=== PATIENT | female | born 1975 | race African-American/Black ===

== ENCOUNTER 2016-07-19 08:35 | Emergency (ER) | payer MEDICARE, MEDICAID ==
[~2016-07-19] VITALS: Ht 167.6 cm; Wt 103.4 kg
[~2016-07-19 08:35] MED LIST: CILOXAN 0.3% O1 DROP LEFT EYE; GENTAMICIN SUL3.5 GM OP; NAPROXEN500 M2 ORAL; NORCO 5-325 TA1 EACH ORAL; PLAQUENIL200 MG PO; ZYMAXID2.5 ML LEFT EYE
[2016-07-19] MEDS ORDERED: PREDNISONE20 MG ORAL (09:11)
[2016-07-19] MEDS ORDERED: NORCO 5-325 TA1 EACH ORAL (09:11)
[2016-07-19] MEDS ORDERED: PredniSONE 20mg tab ORAL ONE (09:15)
[2016-07-19] MEDS ORDERED: Ketorolac 60mg Inj IM ONE (09:15)
[2016-07-19 09:42] VITALS: BP 121/88
--- NOTE | 2016-07-19 10:20 | Emergency Room Report ---
History of Present Illness General Chief Complaint: Upper Extremity Injury Source: Patient Present Illness HPI Patient presented for right shoulder pain. The patient had prior history of lupus. Patient any fever. She denied recent trauma. Pain had gradual onset over the past 3 days. Patient was having increased pain with anterior movement. She reports having prior history of multiple joint pains. She's not currently taking any medications. She denies recent illness. She denies .She denied any sore throat or other complaints. Allergies: Coded Allergies: No Known Allergies (Unverified , 07/04/12) Patient History Last Menstrual Period: 3-3 Now: No Reviewed Nursing Documentation: PMH: Agreed, PSxH: Agreed Nursing Documentation-PMH Past Medical History: No History, Except For Hx Cardiac Problems: No Hx Hypertension: No Hx Pacemaker: No Hx Asthma: No Hx COPD: No Hx Diabetes: No Hx Cancer: No Hx Gastrointestinal Problems: No Hx Dialysis: No Hx Neurological Problems: Yes - LUPUS Hx Cerebrovascular Accident: No Hx Seizures: No Review of Systems All Other Systems: negative except mentioned in HPI Physical Exam Vital Signs Date Time Temp Pulse Resp B/P Pulse Ox O2 Delivery O2 Flow Rate FiO2 07/19/16 08:48 98.1 93 18 126/84 100 Room Air General Appearance: well appearing, no apparent distress, alert, GCS 15 Head: normocephalic, atraumatic ENT: hearing grossly normal, normal voice Neck: full range of motion, supple Respiratory: no respiratory distress, speaking full sentences Gastrointestinal: normal inspection, non tender, soft Musculoskeletal: normal inspection, back normal, no calf tenderness Neurologic: normal inspection, alert, oriented x3, responsive, normal gait Psychiatric: normal inspection, mood/affect normal Skin: no rash Medical Decision Making Diagnostic Impression: Primary Impression: Arthritis ER Course Patient presented for shoulder pain. Differential diagnoses included was not limited to fracture, dislocation, a.c. separation, arthritis, septic joint. Patient's benign exam and does not appear to require any further imaging or laboratory testing at this time The patient was given IM pain medications as well as prednisone. The patient does not appear to have a septic joint. The patient has some tenderness in the anterior deltoid muscle. There is no bicipital tenderness. The joint appears normal without inflammation or erythema. The patient is advised followup with her primary care physician for further evaluation and treatment. She is given prescription for [place]. Last Vital Signs Date Time Temp Pulse Resp B/P Pulse Ox O2 Delivery O2 Flow Rate FiO2 07/19/16 08:48 98.1 93 18 126/84 100 Room Air Status: improved Disposition: HOME, SELF-CARE Condition: Stable Scripts Hydrocodone Bit/Acetaminophen 5-325* (NORCO 5-325*) 1 Each Tablet 1 TAB ORAL Q6H Y for For Pain, #10 TAB 0 Refills Prov: Alejandro Nicholson 07/19/16 Prednisone* (PREDNISONE*) 20 Mg Tablet 40 MG ORAL DAILY, #10 TAB Prov: Alejandro Nicholson 07/19/16 Referrals: NON PHYSICIAN (PCP) Patient Instructions: Arthritis, [id number] Alejandro Nicholson Jul 19, 2016 10:20
== END 2016-07-19 09:42 | disposition home or self-care (01) ==
LOC: EMR 09:20
DX: M19.90 Unspecified osteoarthritis, unspecified site (principal); M32.9 Systemic lupus erythematosus, unspecified
CPT/HCPCS: 96372; 99284

== ENCOUNTER 2016-09-22 09:44 | Emergency (ER) | payer MEDICARE, MEDICAID ==
[~2016-09-22] VITALS: Ht 165.1 cm; Wt 92.5 kg
[~2016-09-22 09:44] MED LIST changes: +PREDNISONE20 MG ORAL
[2016-09-22 10:00] VITALS: BP 121/83
[2016-09-22] MEDS ORDERED: Famotidine 20 MG/ 2ML VIAL IVP ONE (10:15)
[2016-09-22 10:31] LABS: BASOPHILS % (AUTO) 1.1 % (0.0-2.0); EOSINOPHILS % (AUTO) 3.4 % (0.0-3.0); LYMPHOCYTES % (AUTO) 24.6 % (20.0-45.0); MEAN CORPUSCULAR HEMOGLOBIN 27.8 PG (27.0-31.0); MEAN CORPUSCULAR HGB CONC 31.9 G/DL (32.0-36.0); MEAN CORPUSCULAR VOLUME 87 FL (80-99); MEAN PLATELET VOLUME 8.6 FL (6.5-10.1); MONOCYTES % (AUTO) 11.2 % (1.0-10.0); NEUTROPHILS % (AUTO) 59.7 % (45.0-75.0); PLATELET COUNT 502 K/UL (150-450); RED BLOOD COUNT 5.74 M/UL (4.20-5.40); RED CELL DISTRIBUTION WIDTH 12.3 % (11.6-14.8); WHITE BLOOD COUNT 7.7 K/UL (4.8-10.8)
[2016-09-22 10:33] LABS: APPEARANCE,URINE SLIGHTLY CLOUDY; KETONES,URINE 4+ (NEGATIVE); LEUKOCYTE ESTERASE ,URINE 1+ (NEGATIVE); NITRITE,URINE NEGATIVE (NEGATIVE); PH,URINE 6 (4.5-8.0); PROTEIN,URINE 3+ (NEGATIVE); UROBILINOGEN,URINE 1 MG/DL (0.0-1.0)
[2016-09-22 10:42] LABS: BACTERIA,URINE MODERATE /HPF; SQUAMOUS EPITHELIAL CELL,UR MODERATE /LPF (NONE/OCC)
[2016-09-22 10:44] LABS: ICTOTEST NEGATIVE
[2016-09-22 10:55] LABS: ALANINE AMINOTRANSFERASE 9 U/L (3-33); ALBUMIN/GLOBULIN RATIO 0.8 (1.0-2.7); ANION GAP 17 (5-15); ASPARTATE AMINO TRANSFERASE 16 U/L (5-40); CALCIUM 10.2 mg/dL (8.6-10.2); CARBON DIOXIDE 27 mEQ/L (20-30); CHLORIDE 92 mEQ/L (98-107); CREATININE 1.1 mg/dL (0.5-0.9); GLOMERULAR FILTRATION RATE > 60 mL/min (>60); HEMOLYSIS 2; LIPASE 40 U/L (< 60); POTASSIUM 3.4 mEQ/L (3.4-4.9); SODIUM 136 mEQ/L (135-145); TOTAL PROTEIN 9.3 g/dL (6.6-8.7)
[2016-09-22] MEDS ORDERED: cefTRIAXone 1 GM in NS 55 ML IVPB ONE (11:15)
[2016-09-22] MEDS ORDERED: PROTONIX40 MG ORAL (12:13)
[2016-09-22] MEDS ORDERED: ZOFRAN ODT4 MG ORAL (12:13)
[2016-09-22] MEDS ORDERED: KEFLEX500 MG ORAL (12:13)
[2016-09-22 12:25] VITALS: BP 131/90
--- NOTE | 2016-09-23 07:04 | Emergency Room Report ---
History of Present Illness General Chief Complaint: Generalized Weakness Source: Patient Present Illness HPI 41-year-old female presents to ED c/o vomiting and dizziness x 1 week. patient states she had gastric balloon surgery on 08/27 in [place]. Patient states she initially started on a clear liquid diet and slowly advance to pured foods. States that this week she was supposed to start on solid foods but states she's been unable to tolerate. Patient states she's been vomiting and also having diarrhea. Feels very weak and dizzy. Denies any abdominal pain. Denies any fevers or chills. Denies sick contacts or recent travel. No other aggravating relieving factors. Denies any other associated symptom Allergies: Coded Allergies: No Known Allergies (Unverified , 07/04/12) Patient History Past Medical History: other - lupus Past Surgical History: other - gastric balloon Pertinent Family History: none Social History: Denies: alcohol use, drug use, smoking Last Menstrual Period: 08/14/16 Now: No Immunizations: UTD Reviewed Nursing Documentation: PMH: Agreed, PSxH: Agreed Nursing Documentation-PMH Past Medical History: No History, Except For Hx Hypertension: No Hx Pacemaker: No Hx Asthma: No Hx COPD: No Hx Diabetes: No Hx Cancer: No Hx Gastrointestinal Problems: No Hx Dialysis: No Hx Neurological Problems: Yes - LUPUS Hx Cerebrovascular Accident: No Hx Seizures: No Review of Systems All Other Systems: negative except mentioned in HPI Physical Exam Vital Signs Date Time Temp Pulse Resp B/P Pulse Ox O2 Delivery O2 Flow Rate FiO2 09/22/16 09:52 97.3 121 16 112/88 98 Room Air Sp02 EP Interpretation: reviewed, normal General Appearance: no apparent distress, alert, GCS 15, non-toxic Head: normocephalic, atraumatic Eyes: bilateral eye PERRL, bilateral eye normal inspection ENT: hearing grossly normal, normal pharynx, no angioedema, normal voice Neck: full range of motion, supple/symm/no masses Respiratory: chest non-tender, lungs clear, normal breath sounds, speaking full sentences Cardiovascular #1: no edema, tachycardia Cardiovascular #2: 2+ carotid (R), 2+ carotid (L), 2+ radial (R), 2+ radial (L) , 2+ dorsalis pedis (R), 2+ dorsalis pedis (L) Gastrointestinal: normal bowel sounds, non tender, soft, non-distended, no guarding, no rebound Rectal: deferred Genitourinary: normal inspection, no CVA tenderness Musculoskeletal: back normal, gait/station normal, normal range of motion, non- tender Neurologic: alert, oriented x3, responsive, motor strength/tone normal, sensory intact, speech normal Psychiatric: judgement/insight normal, memory normal, mood/affect normal, no suicidal/homicidal ideation Reflexes: 3+ bicep (R), 3+ bicep (L), 3+ tricep (R), 3+ tricep (L), 3+ knee (R) , 3+ knee (L) Skin: normal color, no rash, warm/dry, well hydrated Lymphatic: no adenopathy Medical Decision Making Diagnostic Impression: Primary Impression: UTI (urinary tract infection) Qualified Codes: N39.0 - Urinary tract infection, site not specified Additional Impression: Gastroenteritis ER Course Hospital Course 41-year-old F presents to ED with vomiting, diarrhea. h/o gastric balloon placement on 08/27 differential diagnosis: gastritis, SBO, cholecystits, gastroenteritis Clinical course Patient placed on stretcher. On diagnostic cardiac sonographer. After initial history and physical I ordered labs, IV fluids, Zofran and protonix Labs - no leukocytosis, electrolytes ok, LFTs normal, UA + bacteria Upon reassessment, patient states she feels better. No longer tachycardic. Given that abdomen is soft and patient denies pain and do not believe imaging is required at this time to evaluate for the balloon Attempted to contact the surgeon but was unsuccessful. Patient states she has followup appointment in her office tomorrow Given Rocephin in ED I feel this is a highly complex case requiring extensive working including EKG/ Rhythm strip, Xray/CT/US, Blood/urine lab work, repeat exams while in ED, and administration of strong opiates/narcotics for pain control, admission to hospital or close patient follow up. Diagnosis - gastroenteritis, UTI Stable and discharged to home with prescriptions for zofran, protonix, keflex. Followup with PMD. Return to ED if symptoms recur or worsen Labs Test 09/22/16 10:10 09/22/16 10:15 Urine Color Yellow Urine Appearance Slightly cloudy Urine pH 6 (4.5-8.0) Urine Specific [place] 1.020 (1.005-1.035) Urine Protein 3+ (NEGATIVE) Urine Glucose (UA) Negative (NEGATIVE) Urine Ketones 4+ (NEGATIVE) Urine Occult Blood 1+ (NEGATIVE) Urine Nitrite Negative (NEGATIVE) Urine Bilirubin 2+ (NEGATIVE) Urine Ictotest Negative Urine Urobilinogen 1 MG/DL (0.0-1.0) Urine Leukocyte Esterase 1+ (NEGATIVE) Urine RBC 2-4 /HPF (0 - 2) Urine WBC 2-4 /HPF (0 - 2) Urine Squamous Epithelial Cells Moderate /LPF (NONE/OCC) Urine Bacteria Moderate /HPF (NONE) Urine HCG, Qualitative Negative White Blood Count 7.7 K/UL (4.8-10.8) Red Blood Count 5.74 M/UL (4.20-5.40) Hemoglobin 15.9 G/DL (12.0-16.0) Hematocrit 50.0 % (37.0-47.0) Mean Corpuscular Volume 87 FL (80-99) Mean Corpuscular Hemoglobin 27.8 PG (27.0-31.0) Mean Corpuscular Hemoglobin Concent 31.9 G/DL (32.0-36.0) Red Cell Distribution Width 12.3 % (11.6-14.8) Platelet Count 502 K/UL (150-450) Mean Platelet Volume 8.6 FL (6.5-10.1) Neutrophils (%) (Auto) 59.7 % (45.0-75.0) Lymphocytes (%) (Auto) 24.6 % (20.0-45.0) Monocytes (%) (Auto) 11.2 % (1.0-10.0) Eosinophils (%) (Auto) 3.4 % (0.0-3.0) Basophils (%) (Auto) 1.1 % (0.0-2.0) Sodium Level 136 mEQ/L (135-145) Potassium Level 3.4 mEQ/L (3.4-4.9) Chloride Level 92 mEQ/L (98-107) Carbon Dioxide Level 27 mEQ/L (20-30) Anion Gap 17 (5-15) Blood Urea Nitrogen 8 mg/dL (7-23) Creatinine 1.1 mg/dL (0.5-0.9) Estimat Glomerular Filtration Rate > 60 mL/min (>60) Glucose Level 105 mg/dL (74-106) Calcium Level 10.2 mg/dL (8.6-10.2) Total Bilirubin 0.4 mg/dL (0.0-1.2) Aspartate Amino Transf (AST/SGOT) 16 U/L (5-40) Alanine Aminotransferase (ALT/SGPT) 9 U/L (3-33) Alkaline Phosphatase 55 U/L (35-104) Total Protein 9.3 g/dL (6.6-8.7) Albumin 4.4 g/dL (3.5-5.2) Globulin 4.9 g/dL Albumin/Globulin Ratio 0.8 (1.0-2.7) Lipase 40 U/L (< 60) Last Vital Signs Date Time Temp Pulse Resp B/P Pulse Ox O2 Delivery O2 Flow Rate FiO2 09/22/16 12:25 98.0 98 16 131/90 100 Room Air Status: improved Disposition: HOME, SELF-CARE Condition: Stable Scripts Ondansetron Odt* (ZOFRAN ODT*) 4 Mg Tab.rapdis 4 MG ORAL Q6H Y for Nausea & Vomiting, #30 TAB 0 Refills Prov: DELORES HODGE M.D. 09/22/16 Cephalexin* (KEFLEX*) 500 Mg Capsule 500 MG ORAL Q6H, #28 CAP 0 Refills Prov: DELORES HODGE M.D. 09/22/16 Pantoprazole* (PROTONIX*) 40 Mg Tablet. 40 MG ORAL DAILY, #30 TAB Prov: DELORES HODGE M.D. 09/22/16 Patient Instructions: Viral Gastroenteritis, Adult, [id number] DELORES HODGE M.D. September 23, 2016 07:04
== END 2016-09-22 12:27 | disposition home or self-care (01) ==
LOC: EMR 09:58
DX: N39.0 Urinary tract infection, site not specified (principal); K52.9 Noninfective gastroenteritis and colitis, unspecified; M32.9 Systemic lupus erythematosus, unspecified; Z98.890 Other specified postprocedural states
CPT/HCPCS: 36415; 80053; 81003; 81025; 83690; 85025; 87086; 96360; 96361; 96374; 96375; 99284; J0696; J2405; S0028

== ENCOUNTER → 2017-04-13 | Emergency (ER) | payer MEDICARE, MEDICAID ==
[~2017-04-13] VITALS: Ht 165.1 cm; Wt 92.5 kg
[~2017-04-13] MED LIST changes: +ERYTHROMYCIN1 G1 OP; +KEFLEX500 MG ORAL; +PROTONIX40 MG ORAL; +ZOFRAN ODT4 MG ORAL
[2017-04-13 10:39] VITALS: BP 136/91
--- NOTE | 2017-04-13 10:46 | Emergency Room Report ---
History of Present Illness General Chief Complaint: Eye Problems Source: Patient Present Illness HPI 41-year-old female walks in with to 3 days of right eye redness, "film" discharge, "grittiness" feeling to right eye and itch. Now spreading to left eye. Does not wear contacts. Denies pain with extraocular movements, headache , fever chills, sick contacts. Allergies: Coded Allergies: No Known Allergies (Unverified , 07/04/12) Patient History Past Medical History: none Past Surgical History: none Pertinent Family History: none Last Menstrual Period: 04/06/17 Now: No Immunizations: UTD Reviewed Nursing Documentation: PMH: Agreed, PSxH: Agreed Nursing Documentation-PMH Hx Hypertension: No Hx Pacemaker: No Hx Asthma: No Hx COPD: No Hx Diabetes: No Hx Cancer: No Hx Gastrointestinal Problems: No Hx Dialysis: No Hx Neurological Problems: Yes - LUPUS Hx Cerebrovascular Accident: No Hx Seizures: No Review of Systems All Other Systems: negative except mentioned in HPI Physical Exam Vital Signs Date Time Temp Pulse Resp B/P (MAP) Pulse Ox O2 Delivery O2 Flow Rate FiO2 04/13/17 10:26 98.1 82 16 136/91 97 Room Air Sp02 EP Interpretation: reviewed, normal General Appearance: normal inspection, well appearing, no apparent distress, alert, GCS 15, non-toxic Head: atraumatic Eyes: bilateral eye PERRL, bilateral eye EOMI, bilateral eye other - Right eye : Injected conjunctiva, mild thick discharge. left eye: very scant injected conjunctiva. No FB on lid eversion. Mild right lower eyelid swelling. ENT: normal ENT inspection, hearing grossly normal, normal voice Neck: normal inspection, full range of motion, supple, no bony tend Respiratory: normal inspection, lungs clear, normal breath sounds, no respiratory distress, no retraction, no wheezing Cardiovascular #1: regular rate, rhythm, no edema Gastrointestinal: normal inspection, normal bowel sounds, non tender, soft, no guarding, no hernia Genitourinary: no CVA tenderness Musculoskeletal: normal inspection, back normal, normal range of motion, Mary' s Sign negative Neurologic: normal inspection, alert, oriented x3, responsive, grease renderer III-XII nml as tested, speech normal Psychiatric: normal inspection, judgement/insight normal, mood/affect normal Skin: normal inspection, normal color, no rash Medical Decision Making Diagnostic Impression: Primary Impression: Bacterial conjunctivitis of both eyes ER Course 41-year-old female with likely bacterial conjunctivitis of right eye, now also left eye Mild swelling of the right lower eyelid, no stye or hordoleum No pain with extraocular movement, unlikely orbital cellulitis No preorbital cellulitis on exam Vital signs stable, well-appearing, afebrile Does not wear contacts Erythromycin eye ointment prescribed understands to return for worsening swelling of eyes pain with extraocular movement ER course: Patient has remained stable during ED stay. Patient is to be discharged to home. Prescriptions given are erythromycin optham Patient is instructed to follow up with their primary care doctor within 5 days. Strict return precautions discussed with patient such as fever, chills, worsening/severe pain, nausea, vomiting, which may indicate severe illness. Patient verbalizes understanding and agrees with plan. Please note that this Emergency Department Report was dictated using [employer]stewardess [employer] technology software, occasionally this can lead to erroneous entry secondary to interpretation by the dictation equipment Last Vital Signs Date Time Temp Pulse Resp B/P (MAP) Pulse Ox O2 Delivery O2 Flow Rate FiO2 04/13/17 10:26 98.1 82 16 136/91 97 Room Air Status: improved Disposition: HOME, SELF-CARE Condition: Improved Scripts Erythromycin Base (Erythromycin) 1 Gm Oint...g. 1 GM OP QID for 7 Days, #1 UNIT Prov: RHIANNON ELIZABETH M.D. 04/13/17 Patient Instructions: Bacterial Conjunctivitis Additional Instructions: - Apply 1/2-inch to both eyelids 4x a day for 7 days - Return to ER for worsening eyelid swelling, headache, or pain with eye movement RHIANNON ELIZABETH M.D. Apr 13, 2017 10:46
== END | disposition home or self-care (01) ==
LOC: EMR 10:35
DX: H10.9 Unspecified conjunctivitis (principal); B96.89 Other specified bacterial agents as the cause of diseases classified elsewhere; M32.9 Systemic lupus erythematosus, unspecified
CPT/HCPCS: 99283

== ENCOUNTER 2017-10-06 11:22 | Emergency (ER) | payer MEDICARE, MEDICAID ==
[~2017-10-06] VITALS: Ht 165.1 cm; Wt 89.4 kg
[2017-10-06 11:50] VITALS: BP 131/90
[2017-10-06 12:14] LABS: APPEARANCE,URINE CLEAR; BILIRUBIN, URINE NEGATIVE (NEGATIVE); COLOR,URINE PALE YELLOW; GLUCOSE, URINE (UA) NEGATIVE (NEGATIVE); KETONES,URINE NEGATIVE (NEGATIVE); LEUKOCYTE ESTERASE ,URINE 2+ (NEGATIVE); NITRITE,URINE NEGATIVE (NEGATIVE); PH,URINE 7 (4.5-8.0); PROTEIN,URINE NEGATIVE (NEGATIVE); UROBILINOGEN,URINE NORMAL MG/DL (0.0-1.0)
[2017-10-06 12:15] LABS: HEMATOCRIT 40.7 % (37.0-47.0); HEMOGLOBIN 13.3 G/DL (12.0-16.0); LYMPHOCYTES % (AUTO) 28.2 % (20.0-45.0); MEAN CORPUSCULAR VOLUME 88 FL (80-99); MONOCYTES % (AUTO) 10.6 % (1.0-10.0); NEUTROPHILS % (AUTO) 58.2 % (45.0-75.0); PLATELET COUNT 375 K/UL (150-450); RED BLOOD COUNT 4.64 M/UL (4.20-5.40); RED CELL DISTRIBUTION WIDTH 12.9 % (11.6-14.8); WHITE BLOOD COUNT 4.3 K/UL (4.8-10.8)
[2017-10-06 12:23] LABS: ANION GAP 8 mmol/L (5-15); BLOOD UREA NITROGEN 7 mg/dL (7-18); CALCIUM 8.9 MG/DL (8.5-10.1); CARBON DIOXIDE 26 MMOL/L (21-32); CHLORIDE 104 MMOL/L (98-107); CREATININE 0.9 MG/DL (0.55-1.30); POTASSIUM 3.2 MMOL/L (3.5-5.1); SODIUM 138 MMOL/L (136-145)
[2017-10-06 12:26] LABS: ALANINE AMINOTRANSFERASE 18 U/L (12-78); ALBUMIN 3.7 G/DL (3.4-5.0); ALBUMIN/GLOBULIN RATIO 0.8 (1.0-2.7); ALKALINE PHOSPHATASE 43 U/L (46-116); ASPARTATE AMINO TRANSFERASE 9 U/L (15-37); BILIRUBIN,TOTAL 0.4 MG/DL (0.2-1.0)
[2017-10-06] MEDS ORDERED: cefTRIAXone 1 GM in NS 55 ML IVPB ONE (13:00)
--- NOTE | 2017-10-06 13:06 | Emergency Room Report ---
History of Present Illness General Chief Complaint: Back Pain-No Injury Source: Patient Present Illness HPI This patient states that she had a urinary tract infection about 3 weeks ago. She states she finished a course of Keflex from her primary care physician about a week and a half ago. She states she feels like her urinary traction did not resolve completely. She states she still has dysuria and a foul odor to her urine. She states that she's also developed pain in her low back that is worse on the right side. She denies fever or chills. She denies vomiting. She has had some nausea. She denies chest pain or shortness of breath. She has no other complaints. Allergies: Coded Allergies: No Known Allergies (Unverified , 07/04/12) Patient History Past Medical History: see triage record, other - Lupus Social History: Denies: smoking, alcohol use, drug use Last Menstrual Period: 09/29/17 Now: No : 3 Para: 3 Reviewed Nursing Documentation: PMH: Agreed; PSxH: Agreed Nursing Documentation-PMH Hx Hypertension: No Hx Pacemaker: No Hx Asthma: No Hx COPD: No Hx Diabetes: No Hx Cancer: No Hx Gastrointestinal Problems: No Hx Dialysis: No Hx Neurological Problems: Yes - LUPUS Hx Cerebrovascular Accident: No Hx Seizures: No Review of Systems All Other Systems: negative except mentioned in HPI Physical Exam Vital Signs Date Time Temp Pulse Resp B/P (MAP) Pulse Ox O2 Delivery O2 Flow Rate FiO2 10/06/17 11:32 97.7 98 18 131/90 97 Room Air 97.7 Sp02 EP Interpretation: reviewed, normal General Appearance: no apparent distress, alert, GCS 15, non-toxic Head: normocephalic, atraumatic Eyes: bilateral eye normal inspection, bilateral eye PERRL ENT: hearing grossly normal, normal pharynx, no angioedema, normal voice Neck: full range of motion, supple/symm/no masses Respiratory: chest non-tender, lungs clear, normal breath sounds, no respiratory distress, no retraction, no accessory muscle use, speaking full sentences Cardiovascular #1: regular rate, rhythm, no edema Gastrointestinal: normal bowel sounds, non tender, soft, non-distended, no guarding, no rebound Rectal: deferred Genitourinary: CVA tenderness (R) Musculoskeletal: back normal, gait/station normal, normal range of motion Neurologic: alert, oriented x3, responsive, motor strength/tone normal, sensory intact, speech normal Psychiatric: judgement/insight normal, memory normal, mood/affect normal, no suicidal/homicidal ideation Skin: normal color, no rash, warm/dry, well hydrated Medical Decision Making Diagnostic Impression: Primary Impression: Back pain Additional Impression: UTI (urinary tract infection) ER Course Patient has a clinical presentation consistent with simple UTI. There are no systemic symptoms to include fever, chills, sweating, nausea or vomiting that would make me concerned for pyelonephritis. Overall this patient's evaluation is benign. Patient is stable for outpatient oral antibiotic therapy. The patient was given return precautions and followup instructions. Laboratory Tests Test 10/06/17 12:02 White Blood Count 4.3 K/UL (4.8-10.8) L Red Blood Count 4.64 M/UL (4.20-5.40) Hemoglobin 13.3 G/DL (12.0-16.0) Hematocrit 40.7 % (37.0-47.0) Mean Corpuscular Volume 88 FL (80-99) Mean Corpuscular Hemoglobin 28.7 PG (27.0-31.0) Mean Corpuscular Hemoglobin Concent 32.6 G/DL (32.0-36.0) Red Cell Distribution Width 12.9 % (11.6-14.8) Platelet Count 375 K/UL (150-450) Mean Platelet Volume 8.0 FL (6.5-10.1) Neutrophils (%) (Auto) 58.2 % (45.0-75.0) Lymphocytes (%) (Auto) 28.2 % (20.0-45.0) Monocytes (%) (Auto) 10.6 % (1.0-10.0) H Eosinophils (%) (Auto) 2.0 % (0.0-3.0) Basophils (%) (Auto) 1.0 % (0.0-2.0) Urine Color Pale yellow Urine Appearance Clear Urine pH 7 (4.5-8.0) Urine Specific [place] 1.005 (1.005-1.035) Urine Protein Negative (NEGATIVE) Urine Glucose (UA) Negative (NEGATIVE) Urine Ketones Negative (NEGATIVE) Urine Occult Blood Negative (NEGATIVE) Urine Nitrite Negative (NEGATIVE) Urine Bilirubin Negative (NEGATIVE) Urine Urobilinogen Normal MG/DL (0.0-1.0) Urine Leukocyte Esterase 2+ (NEGATIVE) H Urine RBC 0-2 /HPF (0 - 2) Urine WBC 10-15 /HPF (0 - 2) H Urine Squamous Epithelial Cells Few /LPF (NONE/OCC) Urine Bacteria Few /HPF (NONE) Urine HCG, Qualitative Negative (NEGATIVE) Sodium Level 138 MMOL/L (136-145) Potassium Level 3.2 MMOL/L (3.5-5.1) L Chloride Level 104 MMOL/L (98-107) Carbon Dioxide Level 26 MMOL/L (21-32) Anion Gap 8 mmol/L (5-15) Blood Urea Nitrogen 7 mg/dL (7-18) Creatinine 0.9 MG/DL (0.55-1.30) Estimate Glomerular Filtration Rate > 60 mL/min (>60) Glucose Level 103 MG/DL (74-106) Calcium Level 8.9 MG/DL (8.5-10.1) Total Bilirubin 0.4 MG/DL (0.2-1.0) Aspartate Amino Transferase (AST) 9 U/L (15-37) L Alanine Aminotransferase (ALT) 18 U/L (12-78) Alkaline Phosphatase 43 U/L (46-116) L Total Protein 8.2 G/DL (6.4-8.2) Albumin 3.7 G/DL (3.4-5.0) Globulin 4.5 g/dL Albumin/Globulin Ratio 0.8 (1.0-2.7) L Last Vital Signs Date Time Temp Pulse Resp B/P (MAP) Pulse Ox O2 Delivery O2 Flow Rate FiO2 10/06/17 11:50 97.7 72 18 131/90 97 Room Air 97.7 Status: improved Disposition: HOME, SELF-CARE Condition: Improved Referrals: NON PHYSICIAN (PCP) MARCO LAN D.O. Oct 06, 2017 13:06
[2017-10-06] MEDS ORDERED: NITROFURANTOIN100 M2 ORAL (13:08)
[2017-10-06 14:44] VITALS: BP 131/90
== END 2017-10-06 14:57 | disposition home or self-care (01) ==
LOC: EMR 11:47
DX: M54.5 Low back pain (principal); N39.0 Urinary tract infection, site not specified; M32.9 Systemic lupus erythematosus, unspecified
CPT/HCPCS: 36415; 80053; 81003; 81025; 85025; 87086; 87181; 96374; 96375; 99283; J0696

== ENCOUNTER 2018-01-20 09:51 | Emergency (ER) | payer MEDICARE, MEDICAID ==
[~2018-01-20] VITALS: Ht 165.1 cm; Wt 78.5 kg
[~2018-01-20 09:51] MED LIST changes: +NITROFURANTOIN100 M2 ORAL
[2018-01-20] MEDS ORDERED: Ketorolac 60mg Inj IM ONE (10:15)
--- NOTE | 2018-01-20 10:27 | Emergency Room Report ---
History of Present Illness General Chief Complaint: Lower Extremity Injury Source: Patient Present Illness HPI Patient presents with complaints of right knee pain Patient reports significant past medical history Previous surgery on the right knee Has had ligamental injury Up till 1-1/2 months ago patient was walking gingerly and carefully up and down stairs over the past one month she has been attempting to walk downstairs more regularly 2 weeks ago patient had same episode where she felt her right knee 'locking up' patient also experienced a panic attack with that She reports that the discomfort slowly improved and resolved This morning however as she was sliding out of bed and stepping down again felt similar sensation and has pain with fully extending or attempting to fully flex the right knee patient gives reports that she did not fully finish her physical therapy she also reports that she was discussing possible other surgery with her specialist Allergies: Coded Allergies: No Known Allergies (Unverified , 07/04/12) Patient History Past Medical History: see triage record Pertinent Family History: none Last Menstrual Period: 8-20 Now: No Reviewed Nursing Documentation: PMH: Agreed; PSxH: Agreed Nursing Documentation-PMH Past Medical History: No History, Except For Hx Hypertension: No Hx Pacemaker: No Hx Asthma: No Hx COPD: No Hx Diabetes: No Hx Cancer: No Hx Gastrointestinal Problems: No Hx Dialysis: No Hx Neurological Problems: Yes - LUPUS Hx Cerebrovascular Accident: No Hx Seizures: No Review of Systems All Other Systems: negative except mentioned in HPI Physical Exam Vital Signs Date Time Temp Pulse Resp B/P (MAP) Pulse Ox O2 Delivery O2 Flow Rate FiO2 01/20/18 09:54 98.0 101 18 124/79 98 Room Air 98.1 Sp02 EP Interpretation: reviewed, normal General Appearance: well appearing, no apparent distress Head: normocephalic, atraumatic Eyes: bilateral eye PERRL, bilateral eye EOMI ENT: normal pharynx, no angioedema Neck: full range of motion, supple Respiratory: lungs clear Cardiovascular #1: normal peripheral pulses, regular rate, rhythm Gastrointestinal: non tender, soft Musculoskeletal: other - There is some swelling noted to right knee no obvious joint effusion, the patella is mobile does not necessarily clinically appear to be dislocated however shows a raised appearance with the mild difficulty just superior to it, Neurologic: alert, oriented x3, responsive Skin: normal color, no rash Lymphatic: no adenopathy Procedures Splinting Splinting : Consent: Verbal Location: Right knee Pre-Made Type: knee immobilizer Pre-Proc Neuro Vasc Exam: normal Post-Proc Neuro Vasc Exam: normal Patient Tolerated: Well Complications: None Medical Decision Making Diagnostic Impression: Primary Impression: Right knee sprain ER Course Given the patient's history and presentation The patella itself appears to be freely mobile does not appear to be consistent with dislocation Nevertheless x-ray imaging was obtained does not show any acute pathology Given the patient's discomfort past medical history and continued problems with the right knee patient was placed into a knee immobilizer And requires close outpatient orthopedic follow-up Other X-Ray Diagnostic Results Other X-Ray Diagnostic Results : X-Ray ordered: Right knee # of Views/Limited Vs Complete: 3 View Indication: Pain EP Interpretation: Yes Interpretation: no dislocation, no soft tissue swelling, no fractures Impression: No acute disease Electronically Signed by: Teo Mike DO Last Vital Signs Date Time Temp Pulse Resp B/P (MAP) Pulse Ox O2 Delivery O2 Flow Rate FiO2 01/20/18 09:54 98.0 101 18 124/79 98 Room Air 98.1 Status: improved Disposition: HOME, SELF-CARE Condition: Improved Additional Instructions: Patient is provided with the discharge instructions notified to follow up with primary doctor in the next 2-3 days otherwise return to the er with any worsening symptoms. Please note that this report is being documented using [employer] technology. This can lead to erroneous entry secondary to incorrect interpretation by the dictating instrument. Teo Mike DO Jan 20, 2018 10:27
[2018-01-20] MEDS ORDERED: Tylenol #3 tab (300mg/30mg) ORAL ONE (10:30)
--- NOTE | 2018-01-20 11:30 | Diagnostic Imaging Report ---
Indication: Pain Knee pain/trauma 3 views of the right knee were obtained. Findings: No acute fracture, malalignment, or joint effusion are identified. Joint space is relatively well-maintained. Bones are osteopenic. Impression: Negative for acute findings.
[2018-01-20 12:01] VITALS: BP 126/72
== END 2018-01-20 12:10 | disposition home or self-care (01) ==
LOC: EMR 10:30
DX: S83.91XA Sprain of unspecified site of right knee, initial encounter (principal); X58.XXXA Exposure to other specified factors, initial encounter; Y92.019 Unspecified place in single-family (private) house as the place of occurrence of the external cause; M32.9 Systemic lupus erythematosus, unspecified
CPT/HCPCS: 96372; 99283